=== PATIENT | female | born 1960 | race Caucasian/White ===

== ENCOUNTER 2018-09-18 10:10 | Observation (INO) | payer BC ==
[~2018-09-18 10:10] MED LIST: CEFAZOLIN SODIUM 2 GM in DEXTROSE 5%-WATER 100 ML IV PRN
[2018-09-18 10:50] LABS: INTERNATIONAL RATION (INR) 0.88; PARTIAL THROMBOPLASTIN TIME 26.4 SEC (23.5-35.8); PROTHROMBIN TIME 12.4 SEC (11.4-15.4)
[2018-09-18] MEDS ORDERED: KETOROLAC TROMETHAMINE INJ/PF 30 MG/1 ML SDV ONE (14:06)
[2018-09-18] MEDS ORDERED: FENTANYL CITRATE INJ/PF 250 MCG/5 ML AMPULE ONE (14:20)
[2018-09-18] MEDS ORDERED: PROPOFOL INJ 200 MG/20 ML VIAL IV ONE (14:21)
[2018-09-18] MEDS ORDERED: ONDANSETRON HCL INJ/PF 4 MG/2 ML SDV ONE ×2 (14:21→18:27)
[2018-09-18] MEDS ORDERED: MIDAZOLAM 2 MG/2 ML INJ ONE (14:21)
[2018-09-18] MEDS ORDERED: HYDROMORPHONE HCL INJ/PF 2 MG/ML AMPULE ONE (14:21)
[2018-09-18] MEDS ORDERED: ACETAMINOPHEN 1,000 MG/100 ML RTUPB IV ONE (14:21)
[2018-09-18] MEDS ORDERED: BUPIVACAINE HCL 0.5 % INJ/PF 30 ML SDV ONE ×2 (14:26→14:27)
[2018-09-18] MEDS ORDERED: MEPERIDINE HCL/PF INJ 25 MG/1 ML DISP.SYRIN IV PRN (15:20)
[2018-09-18] MEDS ORDERED: DIPHENHYDRAMINE HCL 50 MG/ML VIAL IV PRN (15:20)
[2018-09-18] MEDS ORDERED: FENTANYL CITRATE INJ/PF 100 MCG/2 ML AMPUL IV PRN ×3 (15:20)
[2018-09-18] MEDS ORDERED: ONDANSETRON HCL INJ/PF 4 MG/2 ML SDV IV PRN ×2 (15:20→16:30)
[2018-09-18] MEDS ORDERED: PROMETHAZINE HCL INJ 25 MG/1 ML VIAL IV PRN ×2 (15:20)
[2018-09-18] MEDS ORDERED: MORPHINE SULFATE 10 MG/ML INJ IV PRN ×4 (15:20→23:01)
[2018-09-18] MEDS ORDERED: NITROGLYCERIN 0.4 MG/TAB 25 TAB/BOTTLE ONE (17:46)
[2018-09-18] MEDS: NITROGLYCERIN 0.4 MG/TAB 25 TAB/BOTTLE SL PRN ×3 (17:55→18:10)
--- NOTE | 2018-09-18 18:03 | OPERATIVE REPORT E ---
Operative Report NAME: CONRAD HUBER : 1960 AGE: 58Y DATE OF SURGERY: 09/18/2018 ROOM: PREOPERATIVE DIAGNOSES: 1. RIGHT KNEE MENISCAL AND CHONDRAL INJURY. 2. LEFT KNEE MENISCAL AND CHONDRAL INJURY. POSTOPERATIVE DIAGNOSES: 1. RIGHT KNEE MENISCAL AND CHONDRAL INJURY. 2. LEFT KNEE MENISCAL AND CHONDRAL INJURY. PROCEDURE: 1. Right knee operative arthroscopy with partial medial meniscectomy. 2. Right knee operative arthroscopy with shaving chondroplasty medial femoral condyle. 3. Right knee operative arthroscopy with shaving chondroplasty patella. 4. Therapeutic synovectomy three compartment. 5. Left knee arthroscopy with partial medial meniscectomy. 6. Left knee operative arthroscopy with shaving chondroplasty medial femoral condyle. 7. Left knee shaving chondroplasty patella. 8. Left knee operative arthroscopy with three compartment therapeutic synovectomy. SURGEON: JERRY FRAZIER M.D. ANESTHESIA: General. BLOOD LOSS: Minimal. COMPLICATIONS: None. INDICATIONS: The patient is a 58-year-old woman with bilateral knee pain. She has failed nonoperative treatment including multiple cortisone injections, nonsteroidal anti-inflammatory medications, and physical therapy. DESCRIPTION OF PROCEDURE: Following induction of general anesthetic, administration of antibiotics, the patient was placed supine on the operating room table. All bony prominences were padded. Both legs were sterilely prepped with ChloraPrep and draped in the standard fashion. Tourniquets were not used. We first started the arthroscopy on the right knee. Needle localization was used and medial and lateral portals were made. Portals were opened bluntly. Arthroscope was placed in the lateral portal and diagnostic arthroscopy was performed. Diagnostic arthroscopy demonstrated chondromalacia of the patella, chondromalacia of the medial femoral condyle, partial medial meniscal tear, as well as abundant synovitis in all 3 compartments. The lateral compartment cartilage meniscus was normal. Through the medial protal an up biter was used and medial meniscectomy was performed with the biter to a stable base. Shaver was brought in to contour the remainder of the medial meniscus. While in that compartment a shaving chondroplasty of the medial femoral condyle was performed. We went back up into the patellofemoral compartment were therapeutic synovectomy and shaving chondroplasty of the patella was performed. Going to lateral compartment there was abundant synovitis laterally, however, there was no cartilage injury. Synovectomy was performed in this compartment. The arthroscope was then removed. Portals were closed with 3-0 Monocryl. We next turned out attention to the left knee. Needle localization was performed for both the medial and lateral portals. Sharp incision through skin, blunt trocar entry. Arthroscope was placed in the lateral portal. Diagnostic arthroscopy was performed. Diagnostic arthroscopy demonstrated a partial medial meniscal tear, chondromalacia of the medial femoral compartment, chondromalacia of the patella and abundant synovitis in all 3 compartments. With the arthroscope in the medial compartment an up biter was brought in and partial medial meniscectomy was performed. A shaver was brought in to contour the meniscus and perform a synovectomy. Scope and shaver were than placed in the patellofemoral compartment were a shaving chondroplasty of the patella was performed and therapeutic synovectomy. Lastly again going into lateral compartment to ensure there were no loose bodies, synovitis was there and this was debrided. The cartilage of the lateral compartment was intact and no additional procedures were performed. The arthroscope and shaver were removed. Portals were closed with 3-0 Monocryl. A 0.25% Marcaine 20 mL were injected into both knees and a bulky sterile dressing was applied. The patient tolerated the procedure well without complications, brought to the recovery room in stable condition. DICTATING PHYSICIAN: JERRY FRAZIER M.D. [id number] PHY#: [id number] ID: [id number] JOB#: [id number] ACCT: [id number] cc:JERRY FRAZIER M.D. >
[2018-09-18] MEDS ORDERED: FAMOTIDINE 20 MG TABLET ONE (18:18)
[2018-09-18] MEDS ORDERED: MAG HYDROX/AL HYDROX/SIMETH SUSP 30 ML UDCUP ONE ×2 (18:25→19:11)
[2018-09-18] MEDS: MAG HYDROX/AL HYDROX/SIMETH SUSP 30 ML UDCUP PO ONE ×3 (18:25→22:00)
[2018-09-18] MEDS: LIDOCAINE 2% VISCOUS SOLN 20 ML UDCUP PO ONE ×2 (18:30→22:00)
[2018-09-18] MEDS: METOCLOPRAMIDE HCL ORAL SOLN 10 MG/10 ML UDCUP PO ONE ×2 (18:30→22:00)
[2018-09-18 18:44] LABS: CREATINE KINASE MB 0.45 ng/mL (<4.55)
[2018-09-18 18:46] LABS: TROPONIN I < 0.012 ng/mL
[2018-09-18] MEDS ORDERED: LIDOCAINE 2% VISCOUS SOLN 20 ML UDCUP ONE (19:10)
--- NOTE | 2018-09-18 21:50 | RADIOLOGY REPORT (SQ) ---
EXAM DESCRIPTION: XR CHEST 1 VIEW COMPLETED DATE/TME: 09/18/2018 00:00 CLINICAL HISTORY: 58 years, Female, chest pain COMPARISON: None. NUMBER OF VIEWS: One TECHNIQUE: AP LIMITATIONS: None. FINDINGS: A left chest dual pacemaker is identified. Cardiac silhouette is within normal limits in size. No lung consolidate. No pleural effusion. No pneumothorax. No acute osseous finding. IMPRESSION: No acute chest finding. copyright 2010 [employer]- All Rights Reserved
--- NOTE | 2018-09-18 21:51 | PDOC CONSULTATION ---
Consultation-Blank Consultation: CARDIOLOGY CONSULTATION by Dr. Natalia Moon on 09/18/2018.. Patient seen at 7:30 PM on 09/18/2018. REASON FOR CONSULTATION: Patient with history of coronary artery disease, there with chest pain post arthroscopic knee surgery post procedure. HISTORY of PRESENT ILLNESS: The patient is fresh postop bilateral knee arthroscopic debridement who complained of chest pain. It is more of an epigastric discomfort and also the patient complains of heaviness like someone sitting on the chest. She is slightly drowsy and is not really very clear whether this is similar to her anginal symptoms. She does have some discomfort on palpation of the epigastrium, without any rigidity or rebound guarding. She also has nausea. There is no diaphoresis, or shortness of breath or palpitations. The patient denies any PND orthopnea. Her first troponin I is negative, and her EKG is within normal rhythm. Examination shows that the pain is reproducible, although she states that 3 sublingual nitroglycerin did not relieve the pain or even decrease it. PAST MEDICAL HISTORY.: The patient has a history of coronary artery disease. She states she had one artery which had a 40% blockage, and there was another one artery which had a 70% blockage, but was not amenable to revascularization. She has had some anginal episodes he usually easily relieved by one sublingual nitroglycerin. She has a history of hypertension. The patient in the past has had syncopal episode of episodes of unknown etiology, and had a loop recorder placed. This showed that there were pauses and also, this correlated with the patient's syncope, and the patient received a dual-chamber pacemaker. There is no history of myocardial infarction. There is no history of congestive heart failure. There is no tachyarrhythmias. She also states due to the pacemaker she has clots in her upper extremity veins and is on Eliquis for this. There is no history of pulmonary embolism. There is no history of asthma or COPD. There is no history of sleep apnea. There is no history of diabetes mellitus or thyroid disease. She has no history of TIA or CVA. There is no history of headaches migraines or seizures. There is no history of chronic kidney disease. She does have a history of GERD and takes omeprazole for this. PAST SURGICAL HISTORY: She has had an appendectomy, bariatric gastric bypass surgery, cholecystectomy, cardiac catheterization, permanent pacemaker placement, and at present arthroscopic knee surgery bilaterally. FAMILY HISTORY: Is positive for premature coronary artery disease in her mother. SOCIAL HISTORY: The patient does not smoke. There is no history of EtOH abuse. ALLERGIES: The patient has no known allergies DISPOSITION: The patient is a full code. Her is a surrogate healthcare decision maker. REVIEW SYSTEMS: CONSTITUTIONAL: Denies any fever chills or rigors HEAD: Denies headaches or head injury EYES: No history of amblyopia or diplopia. No history of amaurosis fugax. EARS: No history of tinnitus. No history of hearing loss. NOSE: No history of hayfever. No history of nosebleeds. MOUTH: No history of altered taste sensation. No history of ulcers in the mouth. No bleeding from the gums. THROAT: No history of odynophagia or dysphagia. No recurrent sore throats. SKIN: No history of pruritus. No history of yellowish discoloration of the skin. No history of psoriasis. No history of Skin cancer. NECK: No neck pain. No swelling in the neck. No goiter. LUNGS: No history of asthma COPD. No cough or sputum production. No history of sleep apnea. No history of pulmonary embolism. No history of wheezing. No symptoms of upper or lower respiratory tract infection. No pleuritic chest pain. No hemoptysis. CARDIAC: History of coronary artery disease. History of stable angina. No history of MS placed. Past history of syncope requiring a permanent pacemaker no syncope after pacemaker placed. No history of congestive heart failure. No history of palpitations no history of PND orthopnea or leg edema. No history of rheumatic heart disease.. GI: History of GERD present. History of gastric bypass bariatric surgery. No history of ascites. No history of hepatitis. No history of fatty food intolerance. No history of GI bleed. Patient has epigastric discomfort that is reproducible by palpation. No history of altered bowel movements. ENDOCRINE: No history of diabetes mellitus. No history of thyroid disease. No polydipsia polyuria. No history of heat or cold intolerance. No history of hirsutism. No history of excessive sweating. METABOLIC: Past history of obesity. At present the patient is mildly obese only. No history of gout. RENAL: No history of chronic kidney disease. No history of symptoms a UTI. No history of hematuria pyuria or dysuria. COMMAND CENTER ANALYST: No history of TIA or CVA. No history of headaches migraines or seizures. No history of gait imbalance. The patient does have a history of restless leg syndrome. PSYCHIATRIC: Patient has a history of depression, well controlled with medication. No history of anxiety. 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 The patient is on Eliquis for this. But no history of pulmonary embolism. No symptoms of calf or buttock claudication. All Hematology: No history of bleeding diathesis no history of clotting disorders. No history of blood dyscrasias. Next PHYSICAL EXAMINATION: On examination the patient is mildly obese. She is in some distress due to her chest heaviness and her abdominal/epigastric discomfort. She is also nauseous. She is well-groomed. Selected Entries 09/18/18 20:16 Temperature 97.7 F Temperature Oral Source Pulse Rate 65 Respiratory 16 Rate Blood Pressure 115/58 L Blood Pressure 77 Mean BP Location Left Arm BP Position Supine O2 Sat by Pulse 100 Oximetry Oxygen Flow 2.00 Rate Oxygen Delivery Nasal Cannula Method HEAD: Is atraumatic normocephalic. EYES: Pupils equal round regular reactive to light accommodation. Extraocular movements are normal. There is no conjunctival pallor. There is no scleral icterus. EARS: Tympanic membranes are intact. External auditory canals are clear. NOSE:: There is no inflammation of the nasal mucous membranes. There is no inflammation of the nasal mucous membrane. There is no deviated nasal septum. MOUTH: Mucous membranes of mouth are moist tongue is moist. There is no ulcers. Is no bleeding from the gums. THROAT: There is no redness of the oropharynx. There is no exudates. SKIN: There is no skin rashes or skin lesions. There is no petechia or ecchymosis NECK: Is supple. There is no JVD. Carotids are equal there is no bruit there is no lymphadenopathy. There is no goiter. Trachea central. LUNGS: Is clear to auscultation percussion. There is no rhonchi rales or wheezing. Is no chest wall tenderness. HEART: S1-S2 is heard there is no S3 gallop there is no S4 gallop there is systolic murmur in the left sternal border and apex there is no rub. ABDOMEN: There is discomfort on palpation of the epigastrium. This reproduces the patient's symptoms. But there is no guarding rigidity or rebound. There is no hepatospleniomegaly. Bowel sounds are well heard. EXTREMITIES: Femorals are well felt. There is no femoral bruits. Leg pulses are well felt. There is bilateral knee dressing is there. There is no pedal edema. There is no DVT or cellulitis. There is no sinus or clubbing. COMMAND CENTER ANALYST: The patient is conscious awake but slightly drowsy due to post anesthetic state. But there is no focal deficit. PSYCHIATRIC: The patient judgment and insight are intact. Her affect is normal. Generic Name Dose Route Start Last Admin Trade Name Freq PRN Reason Stop Dose Admin Cefazolin Sodium 2 gm/ 100 mls @ 200 mls/hr 09/18/18 05:00 Dextrose IV 09/18/18 23:59 .PREOP 09/18/18 PRN THIS MED IS NOT "PRN" Protocol Nitroglycerin 1 tab 09/18/18 18:21 09/18/18 18:10 Nitrostat 0.4 Mg (1/150 Gr) Tabs 25/Bottle SL 10/18/18 18:20 1 tab Q5MP PRN CHEST PAIN Ondansetron HCl 8 mg 09/18/18 16:30 Zofran Inj/Pf 4 Mg/2 Ml Sdv IV 09/18/18 23:59 .X1 PRN FOR NAUSEA/VOMITING Oxycodone/Acetaminophen 2 tab 09/18/18 16:21 Percocet 5-325 Mg Tablet PO 09/25/18 16:20 Q4HP PRN FOR PAIN Discontinued Medications Generic Name Dose Route Start Last Admin Trade Name Freq PRN Reason Stop Dose Admin Al Hydrox/Mg Hydrox/Simethicone Confirm 09/18/18 18:25 Maalox Plus Susp 30 Udcup Administered 09/18/18 18:26 Dose 30 ml .ROUTE .STK-MED ONE Propofol Confirm 09/18/18 14:21 Diprivan Inj 200 Mg/20 Ml Vial Administered 09/18/18 14:22 Dose 200 mg IV .STK-MED ONE Meperidine HCl 12.5 mg 09/18/18 15:20 Demerol Inj 25 Mg/1 Ml Syringe IV 09/18/18 18:21 .WHILE IN PACU PRN Shivering Promethazine HCl 25 mg 09/18/18 15:20 Phenergan Inj 25 Mg/1 Ml Vial IV 09/18/18 18:21 .WHILE IN PACU PRN NAUSEA AND VOMITING Ketorolac Tromethamine Confirm 09/18/18 14:06 09/18/18 14:10 Toradol Inj/Pf 30 Mg/1 Ml Sdv Administered 09/18/18 14:07 15 mg Dose 30 mg .ROUTE .STK-MED ONE Diphenhydramine HCl 12.5 mg 09/18/18 15:20 Benadryl Inj 50 Mg/1 Ml Vial IV 09/18/18 18:21 .WHILE IN PACU PRN ITCHING Hydromorphone HCl Confirm 09/18/18 14:21 Dilaudid Inj/Pf 2 Mg/Ml Ampule Administered 09/18/18 14:22 Dose 2 mg .ROUTE .STK-MED ONE Al Hydrox/Mg Hydrox/Simethicone 30 ml 09/18/18 19:00 09/18/18 18:30 Maalox Plus Susp 30 Udcup PO 09/18/18 19:01 30 ml NOW ONE Fentanyl Citrate 50 mcg 09/18/18 15:20 Sublimaze Inj/Pf 100 Mcg/2 Ml Ampule IV 09/18/18 18:21 .WHILE IN PACU PRN PAIN SCALE 4-5 Fentanyl Citrate 12.5 mcg 09/18/18 15:20 Sublimaze Inj/Pf 100 Mcg/2 Ml Ampule IV 09/18/18 18:21 .WHILE IN PACU PRN PAIN SCALE OF 1 Acetaminophen Confirm 09/18/18 14:21 Ofirmev Inj/Pf 1000 Mg/100 Ml Sdv Administered 09/18/18 14:22 Dose 1,000 mg in 100 mls @ ud IV .STK-MED ONE Promethazine HCl 12.5 mg 09/18/18 15:20 Phenergan Inj 25 Mg/1 Ml Vial IV 09/18/18 18:21 .WHILE IN PACU PRN NAUSEA AND VOMITING Ondansetron HCl Confirm 09/18/18 18:27 Zofran Inj/Pf 4 Mg/2 Ml Sdv Administered 09/18/18 18:28 Dose 4 mg .ROUTE .STK-MED ONE Ondansetron HCl 4 mg 09/18/18 15:20 Zofran Inj/Pf 4 Mg/2 Ml Sdv IV 09/18/18 18:21 .WHILE IN PACU PRN NAUSEA AND VOMITING Ondansetron HCl Confirm 09/18/18 14:21 09/18/18 18:30 Zofran Inj/Pf 4 Mg/2 Ml Sdv Administered 09/18/18 14:22 4 mg Dose 4 mg .ROUTE .STK-MED ONE Nitroglycerin Confirm 09/18/18 17:46 Nitrostat 0.4 Mg (1/150 Gr) Tabs 25/Bottle Administered 09/18/18 17:47 Dose 25 tab .ROUTE .STK-MED ONE Morphine Sulfate 3 mg 09/18/18 15:20 Morphine 10 Mg/Ml Inj IV 09/18/18 18:21 .WHILE IN PACU PRN FOR PAIN Midazolam HCl Confirm 09/18/18 14:21 Versed 2 Mg/2 Ml Inj Administered 09/18/18 14:22 Dose 2 mg .ROUTE .STK-MED ONE Metoclopramide HCl 10 mg 09/18/18 19:00 09/18/18 18:30 Reglan Oral Soln 10 Mg/10 Ml Udcup PO 09/18/18 19:01 10 mg NOW ONE Lidocaine HCl Confirm 09/18/18 19:10 Xylocaine 2% Viscous Soln 20 Ml Udcup Administered 09/18/18 19:11 Dose 20 ml .ROUTE .STK-MED ONE Lidocaine HCl 15 ml 09/18/18 19:00 09/18/18 18:30 Xylocaine 2% Viscous Soln 20 Ml Udcup PO 09/18/18 19:01 15 ml NOW ONE Fentanyl Citrate 25 mcg 09/18/18 15:20 Sublimaze Inj/Pf 100 Mcg/2 Ml Ampule IV 09/18/18 18:21 .WHILE IN PACU PRN PAIN SCALE 2-3 Fentanyl Citrate Confirm 09/18/18 14:20 Sublimaze Inj/Pf 250 Mcg/5 Ml Ampule Administered 09/18/18 14:21 Dose 250 mcg .ROUTE .STK-MED ONE Famotidine Confirm 09/18/18 18:18 Pepcid 20 Mg Tablet Administered 09/18/18 18:19 Dose 20 mg .ROUTE .STK-MED ONE Bupivacaine HCl Confirm 09/18/18 14:27 Sensorcaine 0.5% Mpf Inj 30 Ml Sdv Administered 09/18/18 14:28 Dose 30 ml .ROUTE .STK-MED ONE Bupivacaine HCl Confirm 09/18/18 14:26 09/18/18 15:17 Sensorcaine 0.5% Mpf Inj 30 Ml Sdv Administered 09/18/18 14:27 40 ml Dose 30 ml .ROUTE .STK-MED ONE Al Hydrox/Mg Hydrox/Simethicone Confirm 09/18/18 19:11 Maalox Plus Susp 30 Udcup Administered 09/18/18 19:12 Dose 30 ml .ROUTE .STK-MED ONE 09/18/18 09/18/18 09/18/18 10:26 10:26 16:13 PT 12.4 INR 0.88 APTT 26.4 Potassium 4.0 Creatine Kinase 58 CK-MB (CK-2) Troponin I 09/18/18 16:13 PT INR APTT Potassium Creatine Kinase CK-MB (CK-2) 0.45 Troponin I < 0.012 Home Meds Table Apixaban [Eliquis] 5 mg PO BID 09/16/18 Bupropion HCl [Wellbutrin Xl 300mg 24hr Tablet] 1 tab PO DAILY 09/16/18 Citalopram Hydrobromide [Celexa 20 mg Tablet] 20 mg PO DAILY 09/16/18 Diltiazem HCl [Diltiazem 24Hr ER] 120 mg PO DAILY 09/16/18 Omeprazole 40 mg PO DAILY 09/16/18 Potassium Chloride 20 meq PO DAILY 09/16/18 Ropinirole HCl [Requip] 1 mg PO HSP PRN 09/16/18 Trazodone HCl 100 mg PO HSP 09/16/18 ekg: Is sinus rhythm. Within normal limits. CHEST X-ray: No acute changes. No infiltrates or heart failure. There is a dual-chamber permanent pacemaker in situ. 1. Epigastric pain and chest heaviness: Most likely noncardiac. But review of the patient's medical history of coronary artery disease, and stable angina in the past, would keep the patient in observation overnight and get serial EKGs and enzymes. We will repeat the patient's EKG and enzymes in the morning. I have tried to call Dr. Rinku Craig the patient's swatch maker in [place]. I have yet to receive an answer from him. 2. Status post bilateral orthopedic arthroscopic knee debridement. 3. CORONARY ARTERY DISEASE: Continue her current Cardizem. 4. Hypertension continue Cardizem. 5. GERD: Continue omeprazole 6. PERMANENT pacemaker PLACEMENT: Place for prior history of syncope. Pacemaker seems to be functioning fine, with no syncope after the permanent pacemaker placement.. 6. HISTORY of depression: Continue her antidepressants. 7. 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 Continue Eliquis. MEDICATIONS reviewed. Discussed the plan of care with attending physician and the anesthesiologist. Also discussed with the patient and patient's family. Note 60 minutes spent on this patient with more than 50% of time spent in direct patient care. Medical decision making is of high complexity. Will follow with you.
[2018-09-18] MEDS: OXYCODONE-ACETAMINOPHEN 5-325 MG TABLET PO PRN (22:11)
[2018-09-18] MEDS ORDERED: ACETAMINOPHEN 325 MG TABLET PO PRN (22:30)
[2018-09-18] MEDS ORDERED: ROPINIROLE HCL 1 MG TABLET PO PRN (22:32)
[2018-09-18] MEDS ORDERED: TRAZODONE HCL 50 MG TABLET PO SCH (22:45)
[2018-09-18] MEDS ORDERED: SUCRALFATE SUSP 1 GM/10 ML UDCUP PO ONE (23:00)
[2018-09-18] MEDS ORDERED: FAMOTIDINE 20 MG TABLET PO ONE (23:00)
[2018-09-18] MEDS ORDERED: METOCLOPRAMIDE HCL 10 MG TABLET PO ONE (23:00)
[2018-09-18] MEDS ORDERED: BUPROPION HCL 100 MG TABLET PO ONE (23:00)
[2018-09-18] MEDS ORDERED: DOCUSATE SODIUM 100 MG CAPSULE PO ONE (23:00)
--- NOTE | 2018-09-18 23:00 | PDOC CONSULTATION ---
Consultation Consult Date: 09/08/18 Attending physician:: JERRY XAVIER Consult reason:: Medical management of medical problems History of Present Illness Admission Date/PCP: EMILY ZHANG Patient complains of: Chest pain History of Present Illness: CONRAD HUBER is a 58 year old female who developed chest pain in the postanesthetic recovery area after having bilateral knee arthroscopic debridement performed by Dr. Xavier. She indicates an abrupt onset of discom fort in her epigastric region and lower sternal area that she describes as a constant heaviness or pressure, somewhat similar to her prior experiences with angina, not relieved by nitroglycerin sublingual x3 and accompanied by nausea. She denies vomiting, diaphoresis, dyspnea and palpitations. She has a past history of coronary artery disease with angina as well as a previous history of bradycardia arrhythmia causing syncope resolved by placement of a dual-chamber pacemaker. She has a history of DVT in her left upper extremity for which she takes Eliquis and she has a history of gastroesophageal reflux disorder for which she takes omeprazole. She was seen during the event by Dr. Moon, in consultation at Dr. Xavier's request, who treated her chest pain to resolution with Maalox and Pepcid. The hospital service will be following the patient's other medical problems and contributing as needed. Past Medical History Cardiac Medical History: Reports: Coronary Artery Disease, DVT, Hypertension - HX, NOT ON MEDS AFTER GASTRIC BYPASS Denies: Atrial Fibrillation, Myocardial Infarction, Pulmonary Embolism Pulmonary Medical History: Denies: Asthma, Bronchitis, Chronic Obstructive Pulmonary Disease (COPD), Pneumonia, Respiratory Failure, Sleep Apnea EENT Medical History: Reports: None Neurological Medical History: Denies: Hemorrhagic CVA, Ischemic CVA, Seizures Endocrine Medical History: Reports: Obesity Denies: Diabetes Mellitus Type 1, Diabetes Mellitus Type 2, Hyperthyroidism, Hypothyroidism Renal/ Medical History: Denies: Chronic Kidney Disease, Nephrolithiasis Malignancy Medical History: Reports: None GI Medical History: Reports: Gastroesophageal Reflux Disease Denies: Cirrhosis, Hepatitis Musculoskeltal Medical History: Reports: Arthritis - KENDALL KNEES Denies: Gout Skin Medical History: Denies: Eczema, Psoriasis Psychiatric Medical History: Reports: Depression, General Anxiety Disorder Denies: Alcohol Dependency, Substance Abuse, Tobacco Dependency Traumatic Medical History: Reports: None Hematology: Denies: Anemia, Bleeding Tendencies Infectious Medical History: Reports: None Past Surgical History Past Surgical History: Reports: Appendectomy, Cardiac Catheterization, Cholecystectomy, Gastric Bypass Surgery, Orthopedic Surgery - Bilateral arthroscopic knee surgery on the day of admission, Pacemaker Social History Information Source: Patient Lives with: Spouse/Significant other Smoking Status: Never Smoker Frequency of Alcohol Use: None Hx Recreational Drug Use: No Drugs: None Hx Prescription Drug Abuse: No - Advance Directive Resuscitation Status: Full Code Surrogate healthcare decision maker:: Spouse Family History Family History: CAD Parental Family History Reviewed: Yes Children Family History Reviewed: No Sibling(s) Family History Reviewed.: Yes Medication/Allergy Home Medications: Apixaban [Eliquis] 5 mg PO BID 09/16/18 Bupropion HCl [Wellbutrin Xl 300mg 24hr Tablet] 1 tab PO DAILY 09/16/18 Citalopram Hydrobromide [Celexa 20 mg Tablet] 20 mg PO DAILY 09/16/18 Diltiazem HCl [Diltiazem 24Hr ER] 120 mg PO DAILY 09/16/18 Omeprazole 40 mg PO DAILY 09/16/18 Potassium Chloride 20 meq PO DAILY 09/16/18 Ropinirole HCl [Requip] 1 mg PO HSP PRN 09/16/18 Trazodone HCl 100 mg PO HSP 09/16/18 Allergies/Adverse Reactions: No Known Allergies Allergy (Unverified 09/17/18 13:34) Review of Systems Constitutional: ABSENT: chills, fever(s) Eyes: ABSENT: visual disturbances, other - Ocular pain Ears: ABSENT: hearing changes, other - Ear pain Nose, Mouth, and Throat: ABSENT: mouth pain, sore throat Cardiovascular: PRESENT: as per HPI, chest pain - Lower sternal heaviness or pressure. ABSENT: dyspnea on exertion, edema, orthropnea, palpitations Respiratory: ABSENT: cough, dyspnea Gastrointestinal: PRESENT: abdominal pain - Epigastric heaviness or pressure, nausea. ABSENT: constipation, diarrhea, vomiting Genitourinary: ABSENT: dysuria, hematuria Musculoskeletal: PRESENT: other - Bilateral knee pain. ABSENT: deformity Integumentary: ABSENT: diaphoresis, pruritus, rash Neurological: ABSENT: confusion, convulsions, memory loss, tremor(s) Psychiatric: ABSENT: anxiety, depression Endocrine: ABSENT: cold intolerance, heat intolerance Hematologic/Lymphatic: PRESENT: easy bleeding - On Eliquis, easy bruising - On Eliquis Physical Exam Vital Signs: Temp Pulse Resp BP Pulse Ox 97.7 F 66 16 115/58 L 100 09/18/18 20:16 09/18/18 20:37 09/18/18 20:16 09/18/18 20:16 09/18/18 20:16 Intake & Output 09/16/18 09/17/18 09/18/18 23:59 23:59 23:59 Intake Total 2100 Output Total 2 Balance 2097 Weight 84.82 kg 84.82 kg General appearance: PRESENT: no acute distress, cooperative, other - Overweight Head exam: PRESENT: atraumatic, normocephalic Eye exam: PRESENT: conjunctiva pink, EOMI. ABSENT: scleral icterus Ear exam: PRESENT: normal external ear exam. ABSENT: drainage Mouth exam: PRESENT: dry mucosa, neck supple Neck exam: ABSENT: JVD, thyromegaly, tracheal deviation Respiratory exam: PRESENT: clear to auscultation kendall, symmetrical, unlabored Cardiovascular exam: PRESENT: RRR, systolic murmur - Grade 2-3 soft systolic murmur heard best at the apex without radiation. ABSENT: clicks, gallop, rubs Pulses: PRESENT: normal radial pulses, normal dorsalis pedis pul Vascular exam: PRESENT: normal capillary refill. ABSENT: pallor GI/Abdominal exam: PRESENT: normal bowel sounds, soft, tenderness - Mild epiga stric tenderness reproducing pain of chief complaint on palpation. Rectal exam: PRESENT: deferred Extremities exam: ABSENT: calf tenderness, pedal edema Musculoskeletal exam: ABSENT: deformity, dislocation Neurological exam: PRESENT: alert, oriented to person, oriented to place, oriented to time, oriented to situation, CN II-XII grossly intact. ABSENT: motor sensory deficit Psychiatric exam: PRESENT: appropriate affect, normal mood Skin exam: PRESENT: dry, intact, warm. ABSENT: jaundice, rash, urticaria Results Laboratory Results: 09/18/18 10:26 09/18/18 10:26 Potassium 4.0 09/18/18 09/18/18 16:13 16:13 Creatine Kinase 58 CK-MB (CK-2) 0.45 Troponin I < 0.012 Impressions: Chest X-Ray 09/18/18 00:00 IMPRESSION: No acute chest finding. copyright 2010 [employer]- All Rights Reserved Assessment & Plan - Diagnosis (1) Coronary artery disease with angina pectoris Qualifiers: Coronary Disease-Associated Artery/Lesion type: [place] artery [place] vs. transplanted heart: [place] heart Qualified Code(s): I25.119 - Atherosclerotic heart disease of [place] coronary artery with unspecified angina pectoris Is this a current diagnosis for this admission?: Yes Plan: Patient has a history of coronary artery disease with prior episodes of angina. Her angina is usually relieved by nitroglycerin but this chest discomfort was not relieved by nitroglycerin and was reproducible on exam by applying pressure to the epigastric region therefore making it much more likely that this is esophagitis secondary to her gastroesophageal reflux disease rather than angina pectoris or other cardiac related pain. Dr. Moon will manage her angina therapy and further evaluation. Serial cardiac enzymes and EKG studies will be performed. Patient will have available sublingual nitroglycerin as needed chest pain and in the event of failure of nitroglycerin morphine sulfate will be administered intravenously on a sliding scale basis for pain control. (2) GERD (gastroesophageal reflux disease) Is this a current diagnosis for this admission?: Yes Plan: Patient's exam would indicate that her current problem is most likely related to her gastroesophageal reflux disease. Therefore she will be placed on a regimen for control of her reflux utilizing sucralfate 1 g before meals and at bedtime, Reglan 10 mg before meals and at bedtime and famotidine 10 mg p.o. before meals at at bedtime with discontinuation of her omeprazole. (3) Chronic anticoagulation Is this a current diagnosis for this admission?: Yes Plan: Patient will be started back on her usual Eliquis dosage as soon as possible. (4) History of permanent cardiac pacemaker placement Is this a current diagnosis for this admission?: Yes Plan: Presence of patient's pacemaker is noted and will be factored into all therapeutic decisions. (5) Degenerative arthritis Qualifiers: Osteoarthritis location: knee Osteoarthritis type: primary Laterality: bilateral Qualified Code(s): M17.0 - Bilateral primary osteoarthritis of knee Is this a current diagnosis for this admission?: Yes Plan: Managed by Dr. Xavier. - Time Time Spent: 30 to 50 Minutes Medications reviewed and adjusted accordingly: Yes Anticipated discharge: Home - Inpatient Certification Based on my medical assessment, after consideration of the patient's comorbidities, presenting symptoms, or acuity I expect that the services needed warrant INPATIENT care.: No I certify that my determination is in accordance with my understanding of Medicare's requirements for reasonable and necessary INPATIENT services [42 CFR 412.3e].: No Medical Necessity: Need Close Monitoring Due to Risk of Patient Decompensation, Need For Continuous Telemetry Monitoring, Need for Pain Control, Risk of Complication if Not Cared For in Hospital
[2018-09-18] MEDS ORDERED: NITROGLYCERIN 0.4 MG/TAB 25 TAB/BOTTLE SL PRN (23:01)
[2018-09-18] MEDS ORDERED: TRAZODONE HCL 50 MG TABLET PO PRN (23:30)
[2018-09-19 00:25] LABS: FREE T3 4.77 pg/mL (2.77-5.27); FREE T4 (FREE THYROXINE) 1.29 ng/dL (0.78-2.19)
[2018-09-19 00:53] LABS: CREATINE KINASE MB 0.55 ng/mL (<4.55)
[2018-09-19 00:56] LABS: TROPONIN I < 0.012 ng/mL
[2018-09-19] MEDS: OXYCODONE-ACETAMINOPHEN 5-325 MG TABLET PO PRN ×2 (03:27→09:11)
[2018-09-19] MEDS ORDERED: BUPROPION HCL 100 MG TABLET PO SCH (06:00)
[2018-09-19 08:10] LABS: ABSOLUTE MONOCYTES (AUTO) 0.2 10^3/uL (0.1-1.4); ABSOLUTE NEUT (AUTO) 1.8 10^3/uL (1.7-8.2); BASOPHILS % (AUTO) 0.7 % (0-2); HEMATOCRIT 24.6 % (36.0-47.0); LYMPHOCYTES % (AUTO) 31.8 % (13-45); MEAN CORPUSCULAR HEMOGLOBIN 24.5 pg (27.0-33.4); MEAN CORPUSCULAR HGB CONC 32.3 g/dL (32.0-36.0); MEAN CORPUSCULAR VOLUME 76 fl (80-97); MONOCYTES % (AUTO) 7.9 % (3-13); PLATELET COUNT 182 10^3/uL (150-450); RED BLOOD COUNT 3.25 10^6/uL (3.72-5.28); RED CELL DISTRIBUTION WIDTH 16.3 % (11.5-14.0); SEGMENTED NEUTROPHILS % (AUTO) 58.6 % (42-78); TOTAL CELLS COUNTED % (AUTO) 100 %; WHITE BLOOD COUNT 3.1 10^3/uL (4.0-10.5)
[2018-09-19 08:28] LABS: ALANINE AMINOTRANSFERASE 358 U/L (9-52); ALBUMIN 2.6 g/dL (3.5-5.0); ALKALINE PHOSPHATASE 124 U/L (38-126); ASPARTATE AMINO TRANSFERASE 659 U/L (14-36); BILIRUBIN,DIRECT 0.2 mg/dL (0.0-0.4); BILIRUBIN,TOTAL 0.4 mg/dL (0.2-1.3); BLOOD UREA NITROGEN 18 mg/dL (7-20); CALCIUM 8.3 mg/dL (8.4-10.2); CHOLESTEROL 157.97 mg/dL (0-200); CREATINE KINASE 59 U/L (30-135); GLUCOSE 84 mg/dL (75-110); POTASSIUM 4.6 mmol/L (3.6-5.0); TOTAL PROTEIN 4.8 g/dL (6.3-8.2); TRIGLYCERIDES 66 mg/dL (<150)
[2018-09-19 08:33] LABS: CARBON DIOXIDE 32 mmol/L (22-30); CHLORIDE 108 mmol/L (98-107); SODIUM 139.7 mmol/L (137-145)
[2018-09-19] MEDS: FAMOTIDINE 20 MG TABLET PO SCH ×2 (08:37→12:09)
[2018-09-19] MEDS: METOCLOPRAMIDE HCL 10 MG TABLET PO SCH ×2 (08:37→12:09)
[2018-09-19] MEDS: SUCRALFATE SUSP 1 GM/10 ML UDCUP PO SCH ×2 (08:38→12:10)
[2018-09-19 08:40] LABS: CREATINE KINASE MB 0.51 ng/mL (<4.55); DIRECT LDL 66 mg/dL (<100)
[2018-09-19 08:41] LABS: TROPONIN I < 0.012 ng/mL
[2018-09-19 08:42] LABS: ANION GAP 0 (5-19)
[2018-09-19] MEDS ORDERED: POTASSIUM CHLORIDE 10 MEQ CAPSULE.ER PO SCH (10:00)
[2018-09-19] MEDS ORDERED: DOCUSATE SODIUM 100 MG CAPSULE PO SCH (10:00)
[2018-09-19] MEDS ORDERED: APIXABAN 5 MG TABLET PO SCH (10:00)
[2018-09-19] MEDS ORDERED: CITALOPRAM HYDROBROMIDE 20 MG TABLET PO SCH (10:00)
[2018-09-19] MEDS ORDERED: DILTIAZEM HCL 120 MG CAP.SR.24H PO SCH (10:00)
[2018-09-19] MEDS ORDERED: ONDANSETRON HCL INJ/PF 4 MG/2 ML SDV ONE (12:05)
[2018-09-19 12:33] VITALS: BP 129/65
--- NOTE | 2018-09-19 12:58 | EKG REPORT ---
SEVERITY:- NORMAL ECG - SINUS RHYTHM : Confirmed by: Keven Keating 19-Sep-2018 12:57:55
--- NOTE | 2018-09-19 12:58 | EKG REPORT ---
SEVERITY:- ABNORMAL ECG - ATRIAL-PACED RHYTHM : Confirmed by: Keven Keating 19-Sep-2018 12:57:51
--- NOTE | 2018-09-19 19:07 | Progress Note ---
Provider Note Provider Note: CARDIOLOGY PROGRESS NOTES by Dr. Natalia Moon on 09/19/2018. SUBJECTIVE: The patient has no further chest pain or discomfort. There is no shortness of breath. She has occasionally paced rhythm. She has no PND orthopnea. She has no nausea, or vomiting she denies any palpitations. Her pain is fairly well controlled. PHYSICAL EXAMINATION: The patient is mildly obese. She is well-groomed. She is in no acute distress. Selected Entries 09/19/18 09/19/18 08:04 12:31 Temperature 98.4 F 98.4 F Temperature Oral Source Pulse Rate 66 66 Respiratory 16 16 Rate Blood Pressure 100/49 L Blood Pressure 129/65 H [Right] Blood Pressure 66 Mean O2 Sat by Pulse 99 99 Oximetry Oxygen Flow 2.00 Rate Oxygen Delivery Nasal Cannula Method Pain Level 3 HEAD: Is atraumatic normocephalic. EYES: Pupils equal round regular reactive to light accommodation. Extraocular movements are normal. There is no conjunctival pallor. There is no scleral icterus. EARS: Tympanic membranes are intact. External auditory canals are clear. NOSE:: There is no inflammation of the nasal mucous membranes. There is no inflammation of the nasal mucous membrane. There is no deviated nasal septum. MOUTH: Mucous membranes of mouth are moist tongue is moist. There is no ulcers. Is no bleeding from the gums. THROAT: There is no redness of the oropharynx. There is no exudates. SKIN: There is no skin rashes or skin lesions. There is no petechia or ecchymosis NEC K: Is supple. There is no JVD. Carotids are equal there is no bruit there is no lymphadenopathy. There is no goiter. Trachea central. LUNGS: Is clear to auscultation percussion. There is no rhonchi rales or wheezing. Is no chest wall tenderness. HEART: S1-S2 is heard there is no S3 gallop there is no S4 gallop there is systolic murmur in the left sternal border and apex there is no rub. ABDOMEN: There is discomfort on palpation of the epigastrium. This reproduces the patient's symptoms. But there is no guarding rigidity or rebound. There is no hepatospleniomegaly. Bowel sounds are well heard. EXTREMITIES: Femorals are well felt. There is no femoral bruits. Leg pulses are well felt. There is bilateral knee dressing is there. There is no pedal edema. There is no DVT or cellulitis. There is no sinus or clubbing. SENIOR SOFTWARE DEVELOPER: The patient is conscious awake but slightly drowsy due to post anesthetic state. But there is no focal deficit. PSYCHIATRIC: The patient judgment and insight are intact. Her affect is normal. 09/19/18 09/19/18 09/19/18 00:20 07:50 07:50 WBC Hgb Hct MCV MCH Plt Count Sodium 139.7 Potassium 4.6 Chloride 108 H Carbon Dioxide 32 H Anion Gap 0 L BUN 18 Creatinine 0.82 Est GFR (Non-Af Amer) > 60 Glucose 84 Calcium 8.3 L Magnesium 2.1 Total Bilirubin 0.4 Direct Bilirubin 0.2 Neonat Total Bilirubin Not Reportable Neonat Direct Bilirubin Not Reportable Neonat Indirect Bili Not Reportable AST 659 H ALT 358 H Alkaline Phosphatase 124 Creatine Kinase 59 CK-MB (CK-2) 0.55 0.51 Troponin I < 0.012 < 0.012 Total Protein 4.8 L Albumin 2.6 L Triglycerides 66 Cholesterol 157.97 LDL Cholesterol Direct 66 VLDL Cholesterol 13.0 HDL Cholesterol 71 TSH 09/19/18 09/19/18 07:50 07:50 WBC 3.1 L Hgb 8.0 L Hct 24.6 L MCV 76 L MCH 24.5 L Plt Count 182 Sodium Potassium Chloride Carbon Dioxide Anion Gap BUN Creatinine Est GFR (Non-Af Amer) Glucose Calcium Magnesium Total Bilirubin Direct Bilirubin Neonat Total Bilirubin Neonat Direct Bilirubin Neonat Indirect Bili AST ALT Alkaline Phosphatase Creatine Kinase CK-MB (CK-2) Troponin I Total Protein Albumin Triglycerides Cholesterol LDL Cholesterol Direct VLDL Cholesterol HDL Cholesterol TSH 1.91 EKG: Shows sinus rhythm. Within normal limits. 1. Epigastric pain and chest heaviness: Most likely noncardiac. The patient's EKG is within normal limits. Her second set of troponin is negative. Also the patient's liver function tests are abnormal. Most likely this is gastro intestinal etiology of symptoms. Would recommend and have discussed this with the patient patient's that they follow-up with her rock room worker about this. I did receive a text message from Dr. Rinku Craig, that he is in [place]. Will discuss with him when he comes gets back to the [place]. 2. Status post bilateral orthopedic arthroscopic knee debridement. 3. CORONARY ARTERY DISEASE: Continue her current Cardizem. 4. Hypertension continue Cardizem. 5. GERD: Continue omeprazole 6. PERMANENT pacemaker PLACEMENT: Place for prior history of syncope. Faheem asif seems to be functioning fine, with no syncope after the permanent pacemaker placement.. 6. HISTORY of depression: Continue her antidepressants. 7. 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 Continue Eliquis. Would recommend continue with Eliquis as a home medication. 8. ABNORMAL LIVER FUNCTION TESTS: No evidence of obstructive jaundice. Patient recommended to see a rock room worker for further workup of this. 9. ANEMIA: Etiology to be determined. Discussed with the patient patient has been to follow-up with the primary care physician. Medications reviewed. Management plan discussed with the caregiving providers on the case. Medical decision making is of moderate complexity. 40 minutes spent on this patient more than 50% of time spent in direct patient care.. Will sign off.
== END 2018-09-19 12:21 | disposition home or self-care (01) ==
LOC: OROUT 10:10 → 3N 20:23 → 4W 23:02 → OROUT 09-19 12:50
PROVIDERS: ADMIT Emergency Medicine; ATTEND Orthopaedic Surgery
PROC: 0SBC4ZZ Excision of Right Knee Joint, Percutaneous Endoscopic Approach (ICD-10-PCS; 2018-09-18)
PROC: 0SBD4ZZ Excision of Left Knee Joint, Percutaneous Endoscopic Approach (ICD-10-PCS; principal; 2018-09-18 12:30)
DX: S83.241A Other tear of medial meniscus, current injury, right knee, initial encounter (principal); S83.242A Other tear of medial meniscus, current injury, left knee, initial encounter; X58.XXXA Exposure to other specified factors, initial encounter; M17.0 Bilateral primary osteoarthritis of knee; M94.262 Chondromalacia, left knee; M94.261 Chondromalacia, right knee; M65.862 Other synovitis and tenosynovitis, left lower leg; I25.119 Atherosclerotic heart disease of native coronary artery with unspecified angina pectoris; R07.89 Other chest pain; R10.13 Epigastric pain; R11.0 Nausea; K21.9 Gastro-esophageal reflux disease without esophagitis; E66.9 Obesity, unspecified; I10 Essential (primary) hypertension; F32.9 Major depressive disorder, single episode, unspecified; D64.9 Anemia, unspecified; R94.5 Abnormal results of liver function studies; Z95.0 Presence of cardiac pacemaker; Z86.718 Personal history of other venous thrombosis and embolism; Z98.84 Bariatric surgery status; Z79.02 Long term (current) use of antithrombotics/antiplatelets; Z90.49 Acquired absence of other specified parts of digestive tract; Z82.49 Family history of ischemic heart disease and other diseases of the circulatory system; Z79.899 Other long term (current) drug therapy; Z23 Encounter for immunization; Z90.710 Acquired absence of both cervix and uterus
CPT/HCPCS: 29881; 29876; 36415; 84439; 82553; 82550; 83735; 84132; 84443; 85025; 85610; 85730; 80053; 84484; 84481; 80061; 71045; 90686; 93005 ×2; 93010 ×2; G0378; G0379; J2250; J3490 ×3; J0690; J3010; J1885; J1170; J2405 ×2; J2704; J0131; 1400